=== PATIENT | male | born 1940 | race Caucasian/White ===

== ENCOUNTER 2016-08-24 11:21 | Emergency (ER) | payer MEDICARE ==
[2016-08-24] MEDS ORDERED: NS 0.9% 1000 ML* 1,000 ML IV ONE (13:05)
[2016-08-24 13:13] LABS: Hematocrit 48 % (42-52); Hemoglobin 15.9 g/dl (14.0-18.0); Mean Corpuscular HGB Conc 33 g/dl (31-36); Mean Corpuscular Hemoglobin 30 pg (27-31); Mean Corpuscular Volume 90 fL (80-94); Mean Platelet Volume 9 um3 (7.4-10.4); Red Blood Count 5.31 10^6/ul (4.0-5.4); Red Cell Distribution Width 14 % (10.5-15)
[2016-08-24 13:24] LABS: ALT 19 U/L (7-52); AST 22 U/L (13-39); Albumin 4.2 g/dL (3.2-5.2); Alkaline Phosphatase 62 U/L (34-104); Anion Gap 13 mmol/L (2-11); BUN/Creatinine Ratio 16.4 (8-20); Blood Urea Nitrogen 23 mg/dL (6-24); C Reactive Protein 14.81 mg/L (< 5.00); CO2 Carbon Dioxide 27 mmol/L (22-32); Calcium 10.4 mg/dL (8.6-10.3); Chloride 98 mmol/L (101-111); EGFR African American 63.7 (>60); EGFR Non-African American 49.5 (>60); Globulin 3.9 g/dL (2-4); Glucose 153 mg/dL (70-100); Lipase < 10 U/L (11.0-82.0); Potassium 3.7 mmol/L (3.5-5.0); Sodium 138 mmol/L (133-145); Total Protein 8.1 g/dL (6.4-8.9)
--- NOTE | 2016-08-24 14:17 | RAD ---
Indication: Cough, pneumonia. 2 views of the chest are reviewed. No mediastinal shift is noted. There is cardiomegaly noted. Lung archer demonstrate no pleural fluid, pneumonia or pneumothorax. IMPRESSION: No active cardiopulmonary disease is noted.
[2016-08-24 15:25] VITALS: BP 117/50
--- NOTE | 2016-08-24 15:33 | ED ---
Maricruz Otto Rebecca, scribed for Nicko Almendarez MD on 08/24/16 at 1252 . Abdominal Pain/Male - HPI Summary HPI Summary: Pt is a 75 y/o M who presents to ED c/o abd pain. Pain began suddenly 2 days ago and has been intermittent since onset. Reports pain has been improving while being in the ED. Pain is in the RUQ without radiation, characterized as cramping and currently not present. Sx aggravated and alleviated by nothing. Additionally c/o N/V (3x), abd feeling "tight," rhinorrhea, chills and cough secondary to sinus drainage. Denies fever, hematuria and back pain. Is not on blood thinners. Hernia repair performed 4 days ago at [facility] and he was d/c 3 days ago. Believes that he had an internal blockage, as hegets them 2-3 times per year, which has resolved due to the increase in flow to his ostomy bag. Pt reports he has emptied his ostomy bag 2 times while being in the ED. Discussed with Dr. Arevalo earlier today who advised that he be evaluated by ED and receive XR. Pt reports he does not feel as though a CT is necessary. - History of Current Complaint Chief Complaint: EDAbdPain Stated Complaint: VOMITING Time Seen by Provider: 08/24/16 12:49 Hx Obtained From: Patient Onset/Duration: Sudden Onset, Lasting Days - 2 days, Still Present Timing: Intermittent Severity Initially: Moderate Severity Currently: None Pain Intensity: 0 Pain Scale Used: 0-10 Numeric Location: Discrete At: RUQ Radiates: No Character: Cramping Aggravating Factor(s): Nothing Alleviating Factor(s): Nothing Associated Signs And Symptoms: Positive: Cough, Vomiting - 3x, Diarrhea, Other - Rhinorrhea, chills. Negative: Back Pain - Allergies/Home Medications Allergies/Adverse Reactions: Allergies Allergy/AdvReac Type Severity Reaction Status Date / Time Beef Allergy Allergy See Comment Verified 08/24/16 11:24 Sulfa Antibiotics Allergy Unknown Verified 08/24/16 11:24 Reaction Details dairy Allergy See Comment Uncoded 08/24/16 11:24 ENVIRONMENTAL Allergy Unknown Uncoded 08/24/16 11:24 Reaction Details grain Allergy See Comment Uncoded 08/24/16 11:24 tomatoes Allergy See Comment Uncoded 08/24/16 11:24 PMH/Surg Hx/FS Hx/Imm Hx Endocrine/Hematology History: Reports: Hx Diabetes - type 2 diabetic Cardiovascular History: Reports: Other Cardiovascular Problems/Disorders - a fib , cardiomyopathy Denies: Hx Hypertension GI History: Reports: Hx Gastroesophageal Reflux Disease - ON MEDICATION FOR, Hx Ileostomy - ileostomy Comment Only: Other GI Disorders - pt had a esophogeal diLITation on his upper esoph at [place] 1-2 YRS AGO History: Reports: Hx Acute Renal Failure, Hx Kidney Infection, Hx Kidney Stones - RIGHT 10/2015, Hx Renal Disease - abnormal gfr, Other Problems/ Disorders - L nephrectomy, R hydronephrosis + stent Denies: Hx Dialysis Musculoskeletal History: Reports: Hx Arthritis - NECK- OSTEOARTHRITIS Sensory History: Reports: Hx Contacts or Glasses - GLASSES, Hx Hearing Problem Denies: Hx Hearing Aid Opthamlomology History: Reports: Hx Contacts or Glasses - GLASSES - Cancer History Cancer Type, Location and Year: colon 2007,? left kidney per pt Hx Chemotherapy: Yes - [id number] WITH RADIATION AND 2009/INTROPERATIVE RADIATION - - Surgical History Surgery Procedure, Year, and Place: ileostomy,2007 tumor removal from colon AND ILEOSTOMY,. Hernia repair 1965 left inguinal. 2010 rt inguinal repair. RIGHT STENT PLACEMENT-10/2015 hx stones removed. left nephrectomy and more bowel surgery 2009 Hx Anesthesia Reactions: No Infectious Disease History: No Infectious Disease History: Denies: Traveled Outside the US in Last 30 Days - Family History Known Family History: Positive: Cardiac Disease - Social History Alcohol Use: Daily Alcohol Amount: VARIES WINE- 3 GLASSES PER DAY Substance Use Type: Reports: None Smoking Status (MU): Former Smoker Type: Cigarettes Amount Used/How Often: X ?? Review of Systems Positive: Chills. Negative: Fever Positive: Cough - secondary to sinus drianage Positive: Abdominal Pain - RUQ, currently not present, Vomiting - 3x, Nausea, Other - Abdomen feels "tight" Negative: hematuria Positive: Other - Denies back pain All Other Systems Reviewed And Are Negative: Yes Physical Exam - Summary Physical Exam Summary: The patient is well-nourished in no acute distress and in no acute pain. The skin is warm and dry and skin color reflects adequate perfusion. HEENT: The head is normocephalic and atraumatic. The pupils are equal and reactive. The conjunctivae are clear and without drainage. Nares are patent and without drainage. Mouth reveals dry mucous membranes and the throat is without erythema and exudate. The external ears are intact. The ear canals are patent and without drainage. The tympanic membranes are intact. No sinus tenderness. Neck is supple with full range of motion and non-tender. There are no carotid bruits. There is no neck vein distension. Respiratory: Chest is non-tender. Lungs are clear to auscultation and breath sounds are symmetrical and equal. Cardiovascular: Hear is regular rate and rhythm. There is no murmur or rub auscultated. There is no peripheral edema and pulses are symmetrical and equal. Abdomen: The abdomen is soft. Belly is soft around ostomy bag. There are hyperactive bowel sounds heard in all four quadrants and there is no organomegaly palpated. Ostomy bag is draining. Musculoskeletal: There is no back pain noted. Extremities are non-tender with full range of motion. There is good capillary refill. There is no peripheral edema or calf tenderness elicited. Neurological: Patient is alert and oriented to person, place and time. The patient has symmetrical motor strength in all four extremities. Cranial nerves are grossly intact. Deep tendon reflexes are symmetrical and equal in all four extremities. Psychiatric: The patient has an appropriate affect and does not exhibit any anxiety or depression. Triage Information Reviewed: Yes Vital Signs On Initial Exam: Initial Vitals Temp Pulse Resp BP Pulse Ox 98.4 F 90 16 98/59 99 08/24/16 11:24 08/24/16 11:24 08/24/16 11:24 08/24/16 11:24 08/24/16 11:24 Vital Signs Reviewed: Yes Diagnostics - Vital Signs Vital Signs Temp Pulse Resp BP Pulse Ox 08/24/16 12:21 98 F 102 20 111/70 100 08/24/16 11:24 98.4 F 90 16 98/59 99 - Laboratory Lab Results: Lab Results 08/24/16 08/24/16 08/24/16 Range/Units 12:55 12:55 12:55 WBC 11.0 H (3.5-10.8) 10^3/ul RBC 5.31 (4.0-5.4) 10^6/ul Hgb 15.9 (14.0-18.0) g/dl Hct 48 (42-52) % MCV 90 (80-94) fL MCH 30 (27-31) pg MCHC 33 (31-36) g/dl RDW 14 (10.5-15) % Plt Count 242 (150-450) 10^3/ul MPV 9 (7.4-10.4) um3 Neut % (Auto) 76.7 (38-83) % Lymph % (Auto) 14.7 L (25-47) % Aiken % (Auto) 7.6 (1-9) % Eos % (Auto) 0.5 (0-6) % Baso % (Auto) 0.5 (0-2) % Absolute Neuts (auto) 8.5 H (1.5-7.7) 10^3/ul Absolute Lymphs (auto) 1.6 (1.0-4.8) 10^3/ul Absolute Monos (auto) 0.8 (0-0.8) 10^3/ul Absolute Eos (auto) 0.1 (0-0.6) 10^3/ul Absolute Basos (auto) 0.1 (0-0.2) 10^3/ul Absolute Nucleated RBC 0.01 10^3/ul Nucleated RBC % 0.1 INR (Anticoag Therapy) 0.98 (0.89-1.11) Sodium 138 (133-145) mmol/L Potassium 3.7 (3.5-5.0) mmol/L Chloride 98 L (101-111) mmol/L Carbon Dioxide 27 (22-32) mmol/L Anion Gap 13 H (2-11) mmol/L BUN 23 (6-24) mg/dL Creatinine 1.40 H (0.67-1.17) mg/dL Est GFR ( Amer) 63.7 (>60) Est GFR (Non-Af Amer) 49.5 (>60) BUN/Creatinine Ratio 16.4 (8-20) Glucose 153 H (70-100) mg/dL Lactic Acid (0.5-2.0) mmol/L Calcium 10.4 H (8.6-10.3) mg/dL Total Bilirubin 1.30 H (0.2-1.0) mg/dL AST 22 (13-39) U/L ALT 19 (7-52) U/L Alkaline Phosphatase 62 (34-104) U/L C-Reactive Protein 14.81 H (< 5.00) mg/L Total Protein 8.1 (6.4-8.9) g/dL Albumin 4.2 (3.2-5.2) g/dL Globulin 3.9 (2-4) g/dL Albumin/Globulin Ratio 1.1 (1-3) Lipase < 10 L (11.0-82.0) U/L 08/24/16 Range/Units 12:55 WBC (3.5-10.8) 10^3/ul RBC (4.0-5.4) 10^6/ul Hgb (14.0-18.0) g/dl Hct (42-52) % MCV (80-94) fL MCH (27-31) pg MCHC (31-36) g/dl RDW (10.5-15) % Plt Count (150-450) 10^3/ul MPV (7.4-10.4) um3 Neut % (Auto) (38-83) % Lymph % (Auto) (25-47) % Aiken % (Auto) (1-9) % Eos % (Auto) (0-6) % Baso % (Auto) (0-2) % Absolute Neuts (auto) (1.5-7.7) 10^3/ul Absolute Lymphs (auto) (1.0-4.8) 10^3/ul Absolute Monos (auto) (0-0.8) 10^3/ul Absolute Eos (auto) (0-0.6) 10^3/ul Absolute Basos (auto) (0-0.2) 10^3/ul Absolute Nucleated RBC 10^3/ul Nucleated RBC % INR (Anticoag Therapy) (0.89-1.11) Sodium (133-145) mmol/L Potassium (3.5-5.0) mmol/L Chloride (101-111) mmol/L Carbon Dioxide (22-32) mmol/L Anion Gap (2-11) mmol/L BUN (6-24) mg/dL Creatinine (0.67-1.17) mg/dL Est GFR ( Amer) (>60) Est GFR (Non-Af Amer) (>60) BUN/Creatinine Ratio (8-20) Glucose (70-100) mg/dL Lactic Acid 2.8 H* (0.5-2.0) mmol/L Calcium (8.6-10.3) mg/dL Total Bilirubin (0.2-1.0) mg/dL AST (13-39) U/L ALT (7-52) U/L Alkaline Phosphatase (34-104) U/L C-Reactive Protein (< 5.00) mg/L Total Protein (6.4-8.9) g/dL Albumin (3.2-5.2) g/dL Globulin (2-4) g/dL Albumin/Globulin Ratio (1-3) Lipase (11.0-82.0) U/L Result Diagrams: 08/24/16 12:55 08/24/16 12:55 Lab Statement: Any lab studies that have been ordered have been reviewed, and results considered in the medical decision making process. - Radiology CXR Xray Interpretation: No Acute Changes - NO ACTIVE CARDIOPULMONARY DISEASE NOTED. Radiology Interpretation Completed By: Radiologist Abdominal Pain Fem Course/Dx - Course Assessment/Plan: Pt is a 75 y/o M who presents to ED c/o decreased colostomy flow and abd pain for 2 days s/p hernia repair surgery. Pt vomited at home, GUIDE TRAVEL. Pt is feeling significantly better after fluids and flow to his colostomy bag has increased. CXR reveals no acute cardiopulmonary disease. He will be sent home with Abx and a follow up with Dr. Arevalo. - Diagnoses Differential Diagnosis/HQI/PQRI: Bowel Obstruction, Ischemic Bowel, Pancreatitis , Other - dehydration, partial sbo, Provider Diagnoses: Dehydration, Bronchitis, Abdominal pain Discharge - Discharge Plan Condition: Stable Disposition: HOME Prescriptions: Azithromycin TAB* [Zithromax TAB (Z-HANNAH) 250 mg #6 tabs] 2 tab PO .TODAY, THEN 1 DAILY #6 hannah Patient Education Materials: Acute Bronchitis (ED), Dehydration (ED) Referrals: Scott Arevalo MD [Medical Doctor] - 2 Days (Follow up with Minh Arevalo within the next 2 days. ) The documentation as recorded by the Maricruz de santiago Rebecca accurately reflects the service I personally performed and the decisions made by , Nikco Almendarez MD.
== END 2016-08-24 15:20 | disposition home or self-care (01) ==
LOC: ED 11:21
DX: E86.0 Dehydration (principal); J40 Bronchitis, not specified as acute or chronic; R10.11 Right upper quadrant pain; R05 Cough; R11.2 Nausea with vomiting, unspecified
CPT/HCPCS: 36415; 71020; 80053; 83605; 83690; 85025; 85610; 86140; 96360; 99283

== ENCOUNTER 2017-08-27 20:13 | Inpatient (IN) | payer MEDICARE ==
[2017-08-27] MEDS ORDERED: NS 0.9% 1000 ML* 2,000 ML IV ONE (20:46)
[2017-08-27] MEDS ORDERED: Diltiazem DRIP* 100 MG/100 ML ADDV.BAG IVPB ONE (20:51)
[2017-08-27 21:10] LABS: ABS Basophils 0.1 10^3/ul (0-0.2); ABS Eosinophils 0.2 10^3/ul (0-0.6); ABS Lymphocytes 1.5 10^3/ul (1.0-4.8); ABS Monocytes 0.7 10^3/ul (0-0.8); ABS Neutrophils 8.1 10^3/ul (1.5-7.7); ABS Nucleated RBC 0 10^3/ul; Eosinophil % 2.3 % (0-6); Hematocrit 41 % (42-52); Hemoglobin 13.6 g/dl (14.0-18.0); Lymphocyte % 14.4 % (25-47); Mean Corpuscular HGB Conc 33 g/dl (31-36); Mean Corpuscular Hemoglobin 30 pg (27-31); Mean Corpuscular Volume 91 fL (80-94); Mean Platelet Volume 8 um3 (7.4-10.4); Nucleated Red Blood Cells % 0; Platelet Count 208 10^3/ul (150-450); Red Blood Count 4.51 10^6/ul (4.0-5.4); Red Cell Distribution Width 14 % (10.5-15); White Blood Count 10.6 10^3/ul (3.5-10.8)
--- NOTE | 2017-08-27 21:24 | RAD ---
INDICATION: Chest pain. COMPARISON: Comparison is made with a prior study from August 24, 2016. TECHNIQUE: A portable view of the chest was obtained. FINDINGS: The heart appears mildly enlarged. The lungs are underinflated and clear. IMPRESSION: NO EVIDENCE FOR ACUTE DISEASE.
[2017-08-27] MEDS ORDERED: Magnesium Sulfate 2 GM IV* 2 GM/50 ML BAG IVPB ONE (21:31)
[2017-08-27 21:38] LABS: INR 1.06 (0.77-1.02)
[2017-08-27] MEDS ORDERED: Diltiazem IV VIAL* 125 MG in NS 0.9% 100 ML* 100 ML IV SCH (22:00)
[2017-08-27] MEDS ORDERED: Iodixanol* (CONTRAST) 320 MG/ML 100 ML SDV IV ONE (22:00)
[2017-08-27] MEDS ORDERED: NS 0.9% 100 ML* 100 ML ONE (22:09)
[2017-08-27] MEDS ORDERED: Heparin DRIP 25,000 UNITS(*) 25,000 UNITS/500 ML BAG IVPB SCH (23:45)
[2017-08-27] MEDS ORDERED: Heparin VIAL(*) 5000 UNITS/ML VIAL (FIVE THOUSAND) IV SCH (23:45)
--- NOTE | 2017-08-27 23:46 | ED ---
Benjamin Otto Thomas, scribed for Delonte Reis MD on 08/27/17 at 2102 . HPI Chest Pain - HPI Summary HPI Summary: The patient is a 76 year old male presenting to the emergency department complaining of chest pressure that began suddenly tonight at 19:00. He rates the pain as 7/10. Patient also reports shortness of breath and slight palpitations. Patient was given ASA by paramedics. Patient denies any pain radiation, numbness, nausea, or diaphoresis. Patient was previously diagnosed with cardiomyopathy in 1997. Patient is in remission for colon cancer. He is on a beta jonathan and ASA 81. Past medical history includes DM, an unspecified arrhythmia, and an unspecified cardiomyopathy. - History of Current Complaint Chief Complaint: EDChestPainROMI Time Seen by Provider: 08/27/17 20:30 Hx Obtained From: Patient Onset/Duration: Started Hours Ago - onset today at 19:00, Still Present Timing: Constant Current Severity: Moderate Pain Intensity: 7 Pain Scale Used: 0-10 Numeric Chest Pain Radiates: No Character: Pressure/Squeezing Aggravating Factor(s): Other: - Exertion Alleviating Factor(s): Nothing Associated Signs and Symptoms: Positive: Chest Pain, Shortness of Breath. Negative: Other: - numbness, nausea, diaphoresis - Additional Pertinent History Primary Care Physician: [id number] - Allergy/Home Medications Allergies/Adverse Reactions: Allergies Allergy/AdvReac Type Severity Reaction Status Date / Time MS Beef Allergy Allergy See Comment Verified 08/24/16 11:24 [Beef Allergy] MS Sulfa Antibiotics Allergy Unknown Verified 08/24/16 11:24 [Sulfa Antibiotics] Reaction Details dairy Allergy See Comment Uncoded 08/24/16 11:24 ENVIRONMENTAL Allergy Unknown Uncoded 08/24/16 11:24 Reaction Details grain Allergy See Comment Uncoded 08/24/16 11:24 tomatoes Allergy See Comment Uncoded 08/24/16 11:24 PMH/Surg Hx/FS Hx/Imm Hx Endocrine/Hematology History: Reports: Hx Diabetes - type 2 diabetic Cardiovascular History: Reports: Other Cardiovascular Problems/Disorders - a fib , cardiomyopathy Denies: Hx Hypertension GI History: Reports: Hx Gastroesophageal Reflux Disease - ON MEDICATION FOR, Hx Ileostomy - ileostomy Comment Only: Other GI Disorders - pt had a esophogeal diLITation on his upper esoph at [facility] 1-2 YRS AGO History: Reports: Hx Acute Renal Failure, Hx Kidney Infection, Hx Kidney Stones - RIGHT 10/2015, Hx Renal Disease - abnormal gfr, Other Problems/ Disorders - L nephrectomy, R hydronephrosis + stent Denies: Hx Dialysis Musculoskeletal History: Reports: Hx Arthritis - NECK- OSTEOARTHRITIS Sensory History: Reports: Hx Contacts or Glasses - GLASSES, Hx Hearing Problem Denies: Hx Hearing Aid Opthamlomology History: Reports: Hx Contacts or Glasses - GLASSES - Cancer History Cancer Type, Location and Year: colon 2007,? left kidney per pt Hx Chemotherapy: Yes - [id number] WITH RADIATION AND 2009/INTROPERATIVE RADIATION - - Surgical History Surgery Procedure, Year, and Place: ileostomy,2006 tumor removal from colon AND ILEOSTOMY,. Hernia repair 1965 left inguinal. 2009 rt inguinal repair. RIGHT STENT PLACEMENT-10/2015 hx stones removed. left nephrectomy and more bowel surgery 2009 Hx Anesthesia Reactions: No Infectious Disease History: No Infectious Disease History: Denies: Traveled Outside the [place] in Last 30 Days - Family History Known Family History: Positive: Cardiac Disease - Social History Alcohol Use: Daily Alcohol Amount: VARIES WINE- 3 GLASSES PER DAY Substance Use Type: Reports: None Smoking Status (MU): Former Smoker Type: Cigarettes Amount Used/How Often: X ?? Review of Systems Negative: Fever, Skin Diaphoresis Positive: Chest Pain Positive: Shortness Of Breath Negative: Nausea Negative: Numbness All Other Systems Reviewed And Are Negative: Yes Physical Exam - Summary Physical Exam Summary: General: mildly ill-appearing, no pain distress Skin: warm, color reflects adequate perfusion, dry Head: normal Eyes: EOMI, KATHRYN ENT: normal Neck: supple, nontender Respiratory: CTA, breath sounds present Cardiovascular: Tachycardia, irregularly irregular rhythm Abdomen: Ssoft, nontender. There is an ileostomy bag. Bowel: present Musculoskeletal: normal, strength/ROM intact. There is no pedal edema or calf tenderness. Neurological: normal, sensory/motor intact, A&O x3 Psychological: affect/mood appropriate Triage Information Reviewed: Yes Vital Signs On Initial Exam: Initial Vitals Temp Pulse Resp BP Pulse Ox 96.7 F 108 20 107/78 92 08/27/17 20:26 08/27/17 20:26 08/27/17 20:26 08/27/17 20:26 01/31/18 20:26 Vital Signs Reviewed: Yes Diagnostics - Vital Signs Vital Signs Temp Pulse Resp BP Pulse Ox 08/27/17 20:26 96.7 F 108 20 107/78 92 - Laboratory Lab Results: Lab Results 08/27/17 08/27/17 08/27/17 Range/Units 20:55 20:55 20:55 WBC 10.6 (3.5-10.8) 10^3/ul RBC 4.51 (4.0-5.4) 10^6/ul Hgb 13.6 L (14.0-18.0) g/dl Hct 41 L (42-52) % MCV 91 (80-94) fL MCH 30 (27-31) pg MCHC 33 (31-36) g/dl RDW 14 (10.5-15) % Plt Count 208 (150-450) 10^3/ul MPV 8 (7.4-10.4) um3 Neut % (Auto) 76.1 (38-83) % Lymph % (Auto) 14.4 L (25-47) % Cuming % (Auto) 6.6 (1-9) % Eos % (Auto) 2.3 (0-6) % Baso % (Auto) 0.6 (0-2) % Absolute Neuts (auto) 8.1 H (1.5-7.7) 10^3/ul Absolute Lymphs (auto) 1.5 (1.0-4.8) 10^3/ul Absolute Monos (auto) 0.7 (0-0.8) 10^3/ul Absolute Eos (auto) 0.2 (0-0.6) 10^3/ul Absolute Basos (auto) 0.1 (0-0.2) 10^3/ul Absolute Nucleated RBC 0 10^3/ul Nucleated RBC % 0 INR (Anticoag Therapy) (0.77-1.02) APTT (26.0-36.3) seconds D-Dimer, Quantitative (Less Than 230) ng/mL Sodium 136 (133-145) mmol/L Potassium 4.5 (3.5-5.0) mmol/L Chloride 105 (101-111) mmol/L Carbon Dioxide 23 (22-32) mmol/L Anion Gap 8 (2-11) mmol/L BUN 24 (6-24) mg/dL Creatinine 1.41 H (0.67-1.17) mg/dL Est GFR ( Amer) 63.0 (>60) Est GFR (Non-Af Amer) 49.0 (>60) BUN/Creatinine Ratio 17.0 (8-20) Glucose 245 H (70-100) mg/dL Lactic Acid (0.5-2.0) mmol/L Calcium 8.8 (8.6-10.3) mg/dL Magnesium 1.8 L (1.9-2.7) mg/dL Total Bilirubin 0.70 (0.2-1.0) mg/dL AST 32 (13-39) U/L ALT 32 (7-52) U/L Alkaline Phosphatase 62 (34-104) U/L Total Creatine Kinase 30 (10-223) U/L CK-MB (CK-2) 1.7 (0.6-6.3) ng/mL Troponin I 0.04 H* (<0.04) ng/mL C-Reactive Protein 9.79 H (< 5.00) mg/L B-Natriuretic Peptide 248 H ( - 100) pg/mL Total Protein 7.4 (6.4-8.9) g/dL Albumin 3.6 (3.2-5.2) g/dL Globulin 3.8 (2-4) g/dL Albumin/Globulin Ratio 0.9 L (1-3) Lipase 19 (11.0-82.0) U/L TSH 5.60 (0.34-5.60) mcIU/mL 08/27/17 08/27/17 Range/Units 20:55 20:55 WBC (3.5-10.8) 10^3/ul RBC (4.0-5.4) 10^6/ul Hgb (14.0-18.0) g/dl Hct (42-52) % MCV (80-94) fL MCH (27-31) pg MCHC (31-36) g/dl RDW (10.5-15) % Plt Count (150-450) 10^3/ul MPV (7.4-10.4) um3 Neut % (Auto) (38-83) % Lymph % (Auto) (25-47) % Cuming % (Auto) (1-9) % Eos % (Auto) (0-6) % Baso % (Auto) (0-2) % Absolute Neuts (auto) (1.5-7.7) 10^3/ul Absolute Lymphs (auto) (1.0-4.8) 10^3/ul Absolute Monos (auto) (0-0.8) 10^3/ul Absolute Eos (auto) (0-0.6) 10^3/ul Absolute Basos (auto) (0-0.2) 10^3/ul Absolute Nucleated RBC 10^3/ul Nucleated RBC % INR (Anticoag Therapy) 1.06 H (0.77-1.02) APTT 26.8 (26.0-36.3) seconds D-Dimer, Quantitative > 1050 H (Less Than 230) ng/mL Sodium (133-145) mmol/L Potassium (3.5-5.0) mmol/L Chloride (101-111) mmol/L Carbon Dioxide (22-32) mmol/L Anion Gap (2-11) mmol/L BUN (6-24) mg/dL Creatinine (0.67-1.17) mg/dL Est GFR ( Amer) (>60) Est GFR (Non-Af Amer) (>60) BUN/Creatinine Ratio (8-20) Glucose (70-100) mg/dL Lactic Acid 2.4 H* (0.5-2.0) mmol/L Calcium (8.6-10.3) mg/dL Magnesium (1.9-2.7) mg/dL Total Bilirubin (0.2-1.0) mg/dL AST (13-39) U/L ALT (7-52) U/L Alkaline Phosphatase (34-104) U/L Total Creatine Kinase (10-223) U/L CK-MB (CK-2) (0.6-6.3) ng/mL Troponin I (<0.04) ng/mL C-Reactive Protein (< 5.00) mg/L B-Natriuretic Peptide ( - 100) pg/mL Total Protein (6.4-8.9) g/dL Albumin (3.2-5.2) g/dL Globulin (2-4) g/dL Albumin/Globulin Ratio (1-3) Lipase (11.0-82.0) U/L TSH (0.34-5.60) mcIU/mL Result Diagrams: 08/27/17 20:55 08/27/17 20:55 Lab Statement: Any lab studies that have been ordered have been reviewed, and results considered in the medical decision making process. - Radiology CXR Xray Interpretation: No Acute Changes - NO EVIDENCE FOR ACUTE DISEASE. Dr. Reis has reviewed this report. Radiology Interpretation Completed By: Radiologist - CT CTA Chest CT Interpretation: Positive (See Comments) - Positive for multiple bilateral pulmonary emboli involving vessels to all lobes. Although there are no saddle emboli, the thromboembolus involves the distal portions of both the right and left pulmonary arteries. There is some atelectasis in the left costophrenic sulcus but otherwise no pulmonary infiltrates. The right heart is enlarged and there is reflux of contrast into the inferior vena cava and hepatic veins probably indicating right heart strain. Dr. Reis has reviewed this report. CT Interpretation Completed By: Radiologist - EKG 20:23 Cardiac Rate: Tachycardia EKG Rhythm: Atrial Fibrillation - at 121 BPM EKG Interpretation: Rapid A-Fib. Normal ST. Chest Pain Course/Dx - Course Course Of Treatment: CHEST PAIN FREE IN ED. PATIENT HAD ASA WITH EMS. ADMIT HOSPITALIST WHO IS STARTING HEPARIN DRIP FOR B/L PE. - Diagnoses Provider Diagnoses: Chest pain, Afib, Pulmonary embolism - Provider Notifications Discussed Care Of Patient With: Nely Chambers Time Discussed With Above Provider: 21:33 Instructed by Provider To: Admit As Inpatient - Critical Care Time Critical Care Time: 30-74 min Discharge - Discharge Plan Condition: Fair Disposition: ADMITTED TO [facility] Referrals: Alexei Peña MD [Primary Care Provider] - The documentation as recorded by the Benjamin de santiago Thomas accurately reflects the service I personally performed and the decisions made by me, Delonte Reis MD.
[2017-08-28] MEDS ORDERED: Senna TAB PO PRN (00:26)
[2017-08-28] MEDS ORDERED: Acetaminophen TAB* 325 MG PO PRN (00:26)
[2017-08-28] MEDS ORDERED: Docusate CAP* 100 MG PO PRN (00:26)
[2017-08-28] MEDS ORDERED: Ondansetron INJ* 2 MG/ML VIAL IV PRN (00:26)
[2017-08-28] MEDS ORDERED: Al Hydrox/Mg Hydrox/Simet LIQ* 30 ML UDC PO PRN (00:26)
[2017-08-28] MEDS ORDERED: Dextrose 50% Syringe 50 ML* 25 GM/50 ML SYRINGE IV PUSH PRN (00:29)
[2017-08-28] MEDS ORDERED: NS 0.9% 1000 ML* 1,000 ML IV SCH ×2 (02:45→12:15)
[2017-08-28] MEDS ORDERED: Gabapentin CAP(*) 300 MG ONE (03:06)
[2017-08-28] MEDS: Gabapentin CAP(*) 300 MG PO SCH ×2 (03:09→23:09)
--- NOTE | 2017-08-28 04:36 | HP ---
CC: Alexei Peña MD* HISTORY AND PHYSICAL: DATE OF ADMISSION: 08/28/17 TIME OF EVALUATION: 0000. PRIMARY CARE PHYSICIAN: Alexei Peña MD CHIEF COMPLAINT: Shortness of breath, palpitations, and chest pain. HISTORY OF PRESENT ILLNESS: This is a 76-year-old male with past medical history of atrial fibrillation, not on anticoagulation, who presents to the emergency room with acute onset of shortness of breath, chest pain, and palpitations. The patient states he was in his normal state of health, when he was at the library, reading when he developed substernal chest pain. He got up to move to a more comfortable place and he had significantly worsening chest heaviness, he was short of breath, and he put his head down and EMS was called. When they arrived, he was noted to be hypoxic, in rapid atrial fibrillation, and hypertensive. He states a week ago, he had an episode of palpitations and shortness of breath. He went to go to see his nurse practitioner and she noted an elevated heart rate. He had EKG and blood work and they started him on a beta-jonathan and gave magnesium and he seemed to be better. He denies having history of a recent stress test. He has lost about 8 pounds in the last month. No fever. No recent URI illness. He was sick back in June. No nausea, vomiting, or diarrhea. No change in his output from his colostomy. He denies any recent travel. He states his chest pain is resolved; however, when he moved into the CAT scanner, he had significant discomfort and shortness of breath for just minimal movement. Otherwise, remaining review of systems is negative. In the emergency room, the patient had labs, imaging. He was given a liter of normal saline, 2 g of mag, and started on a diltiazem drip and a heparin drip as well. PAST MEDICAL HISTORY: 1. Diabetes. 2. History of neuropathy secondary to chemotherapy. 3. Atrial fibrillation, on anticoagulation. 4. Remote history of cardiomyopathy, thought to be secondary to viral back in 1997. 5. History of GERD, status post esophageal dilatation. 6. History of acute kidney injury. 7. History of nephrolithiasis. 8. History of left nephrectomy. 9. History of right hydro, history of stent placement. 10. History of colon cancer, status post resection and ileostomy, now considered in remission. 11. History of hernia repair. MEDICATIONS: The patient is not entirely sure his list, but this is what he provided to me: 1. Gabapentin 300 mg in the morning. 2. Gabapentin 900 mg in the evening. 3. Fexofenadine. 4. Lipitor 20 mg daily. 5. Aspirin 81 mg daily. 6. Omeprazole 20 mg daily. 7. Vitamin B12 daily. 8. Metoprolol daily. 9. Magnesium oxide. 10. An oral diabetes medication. ALLERGIES: BEES ALLERGY, SULFA, DAIRY, ENVIRONMENTAL, GREEN TOMATOES. FAMILY HISTORY: Mother from brain aneurysm in her 70s. Father at age 54 from an NE. SOCIAL HISTORY: The patient lives at home with his . 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 He lives with , Monique who is his healthcare proxy. He quit smoking in 1979. At that time, he smoked a pack per day for 30 years. He has a 1 to 2 glasses of wine in the evening. Code status is full code. REVIEW OF SYSTEMS: A 14-point review of systems negative and as mentioned in the HPI. PHYSICAL EXAMINATION GENERAL: No acute distress, resting comfortably with his at the bedside. VITAL SIGNS: Temp 96.7, pulse rate 90, respiratory rate 25, oxygen saturation 99% on 2 L, blood pressure 111/63. HEENT: Head: Normocephalic. Pupils equal and reactive, anicteric. Oropharynx : Mucous membranes are moist. NECK: Supple. No lymphadenopathy. RESPIRATORY: Diminished breath sounds. No wheezes, rhonchi, or rales. CARDIAC: Irregularly irregular rate and rhythm. Soft systolic murmur heard throughout. ABDOMEN: Soft, nontender, nondistended. EXTREMITIES: No clubbing, cyanosis, or edema. +1 DPs. NEUROLOGIC: Alert and oriented x3. No focal neurologic deficits. LABORATORY DATA: White count 10.6, hemoglobin 13.6, hematocrit 41, platelets 208. INR is 1.06. D-dimer greater than 1050. Sodium 136, potassium 4.5, chloride 105, bicarb 23, BUN 24, creatinine 1.41, glucose 245, lactic acid 2.4, mag 1.8. Troponin 0.04, repeat 0.09. CRP 9.79. BNP 248. RADIOGRAPHIC DATA: Chest x-ray shows no evidence for acute disease. EKG shows rapid atrial fibrillation. Chest CTA, positive multiple bilateral pulmonary emboli involving vessels to all lobes, although there is no saddle emboli. The thromboembolus involves distal portions of both the right and left pulmonary arteries. There is some atelectasis in the costophrenic sulcus, but otherwise no pulmonary infiltrates. ASSESSMENT AND PLAN: This is a 76-year-old male with a past medical history of atrial fibrillation, on anticoagulation; remote history of colon cancer, now in remission, who presents to the emergency room with acute onset of chest pain, shortness of breath, palpitations, found to be in rapid atrial fibrillation with bilateral extensive pulmonary emboli. 1. Rapid atrial fibrillation and pulmonary emboli. I suspect the pulmonary emboli triggered him to go into rapid atrial fibrillation. Etiology behind is pulmonary emboli is unclear. He has a history of malignancy, but he is in remission. He denies being sedentary. Plan: Continue him on the heparin drip. We will place him in the ICU. Continue the diltiazem drip for rate control, titrate accordingly. We will obtain an echocardiogram and an ultrasound of the lower extremities in the morning. 2. Chronic medical problems: Diabetes: We will check a hemoglobin A1c. We will place him on a lispro sliding scale. Hold his oral agents. 3. Neuropathy. Continue his gabapentin. 4. Hyperlipidemia. Hold his Lipitor, does not have formulary. 5. Atrial fibrillation. The patient on metoprolol. We will hold this while he is on the diltiazem drip, now will be on anticoagulation. Continue him on the baby aspirin. 6. FEN. Place the patient on a heart healthy diet, carbohydrate diet. 7. DVT prophylaxis. The patient scores moderate risk. He is on heparin drip. 8. Code status. Full code. PATIENT TIME: Greater than 60 minutes spent doing the history and physical, more than half the time spent in direct patient contact. [id number]/CPS #: [id number] [facility] MEDICAL CENTERDarline
[2017-08-28 05:54] LABS: ABS Basophils 0.1 10^3/ul (0-0.2); ABS Eosinophils 0.1 10^3/ul (0-0.6); ABS Lymphocytes 1.4 10^3/ul (1.0-4.8); ABS Monocytes 0.7 10^3/ul (0-0.8); ABS Neutrophils 6.7 10^3/ul (1.5-7.7); ABS Nucleated RBC 0 10^3/ul; Eosinophil % 0.8 % (0-6); Hematocrit 38 % (42-52); Hemoglobin 12.5 g/dl (14.0-18.0); Lymphocyte % 15.8 % (25-47); Mean Corpuscular HGB Conc 33 g/dl (31-36); Mean Corpuscular Hemoglobin 30 pg (27-31); Mean Corpuscular Volume 91 fL (80-94); Mean Platelet Volume 8 um3 (7.4-10.4); Nucleated Red Blood Cells % 0.1; Platelet Count 188 10^3/ul (150-450); Red Blood Count 4.15 10^6/ul (4.0-5.4); Red Cell Distribution Width 14 % (10.5-15); White Blood Count 8.9 10^3/ul (3.5-10.8)
[2017-08-28] MEDS ORDERED: Omeprazole CAP* 20 MG PO SCH (06:00)
[2017-08-28] MEDS ORDERED: NS 0.9% 500 ML* 500 ML IV ONE (06:04)
[2017-08-28 06:16] LABS: EGFR Non-African American 68.9 (>60)
[2017-08-28] MEDS ORDERED: Diltiazem TAB* 30 MG PO SCH (07:00)
[2017-08-28] MEDS ORDERED: NS 0.9% 1000 ML* 1,000 ML IV ONE (07:13)
--- NOTE | 2017-08-28 07:49 | RAD ---
HISTORY: Chest pain COMPARISONS: February 19, 2011 TECHNIQUE: Multiple contiguous axial CT scans of the chest were obtained after the administration of nonionic intravenous contrast, timed to the pulmonary arterial phase of contrast enhancement.. Coronal and sagittal multiplanar reformations are also submitted for review. FINDINGS: NECK AND THYROID: The lower neck and thyroid are unremarkable. CHEST WALL: There is no lower cervical, axillary, or supraclavicular lymphadenopathy by size criteria. HEART AND PERICARDIUM: There is right atrial enlargement. AORTA AND PULMONARY VASCULATURE: There are large filling defects within the right and left pulmonary arterial branches extending to the lobar and segmental branches bilaterally. MEDIASTINUM: There is no mediastinal lymphadenopathy by size criteria. MIKY: There is no hilar lymphadenopathy by size criteria. AIRWAY AND ESOPHAGUS: The airway is unremarkable, without endobronchial filling defect. The esophagus is grossly normal. LUNG PARENCHYMA: There is minimal dependent atelectasis bilaterally. PLEURA: No pleural abnormalities are noted. UPPER ABDOMEN: The upper abdomen is unremarkable. BONES AND SOFT TISSUES: Mild degenerative changes are noted OTHER: None. IMPRESSION: 1. LARGE BILATERAL PULMONARY EMBOLI EXTENDING FROM THE RIGHT AND LEFT PULMONARY ARTERIES TO THE LOBAR AND SEGMENTAL BRANCHES BILATERALLY. 2. THERE IS RIGHT ATRIAL ENLARGEMENT WHICH MAY REFLECT RIGHT HEART STRAIN. Preliminary findings were reported at approximately 11:26 PM on August 27, [address] Tony Vásquez
[2017-08-28] MEDS ORDERED: Gabapentin CAP(*) 300 MG PO SCH ×2 (09:00→21:00)
[2017-08-28] MEDS ORDERED: Aspirin EC Low Dose* 81 MG TAB.EC PO SCH (09:00)
--- NOTE | 2017-08-28 09:48 | ECHO ---
Patient: HEATHER DUMONT [facility] Rec#: [id number] : 1940 Date: 08/28/2017 Age: 76y Height: 182.88 cm / 72.0 in Weight: 81.65 kg / 180.0 lbs Sex: M BSA: 2.04 Room#: [facility] Admit Date#: 08/28/2017 Type: Inpatient Referring: Nely Chambers Reading: Robert Horner MD Grommet Machine Operator: Valerie Robert RDCS CC: Alexei Peña MD Transthoracic Echocardiogram Indication: Pulmonary Embolism BP: 73/46 HR: 75 Rhythm: A-Fib Findings History: A-fib, DM, colon cancer with chemotherapy, s/p colostomy, murmur, acute kidney injury, left nephrectomy. Technical Comments: The study quality is fair. Completed at 0830. Left Ventricle: The left ventricular chamber size is normal. Moderate concentric left ventricular hypertrophy is observed. There are multiple regional wall motion abnormalities. There is apical, distal anterior wall, and distal inferior wall akinesis with thinning as well as moderate to severe mid anterior wall hypokinesis. There is moderate to severely decreased left ventricular systolic function. The estimated ejection fraction is 25-30%. Visually estimated LVEF is 30%. There is septal flattening of the interventricular septum consistent with right ventricular volume or pressure overload. The assessment of diastolic function is non-diagnostic. Left Atrium: The left atrium is severely dilated. Right Ventricle: Moderator Band present. The right ventricle is moderately dilated. The right ventricle wall thickness is mildly increased. The right ventricular global systolic function is mildly to moderately reduced. Right Atrium: The right atrial cavity size is severely dilated. Aortic Valve: The aortic valve is trileaflet. The aortic valve leaflets are mildly thickened. There is trace to mild aortic regurgitation. There is no evidence of aortic stenosis. Mitral Valve: The mitral valve leaflets are mildly thickened. There is mild to moderate mitral regurgitation. There is no evidence of mitral stenosis. Tricuspid Valve: The tricuspid valve leaflets are normal. There is moderate to severe tricuspid regurgitation. The right ventricular systolic pressure is estimated at 46 mmHg. There is evidence of moderate pulmonary hypertension. There is no tricuspid stenosis. Pulmonic Valve: The pulmonic valve appears normal. There is mild pulmonic regurgitation. There is no pulmonic stenosis. Pericardium: There is no significant pericardial effusion. A pericardial fat pad is visualized. Aorta: There is borderline dilatation of the ascending aorta. There is no dilatation of the aortic arch. The aortic root is normal in size. Pulmonary Artery: The main pulmonary artery is not well visualized. Venous: The inferior vena cava appears normal in size. There is an approximate 50% respiratory change in the inferior vena cava dimension. Conclusions Moderate concentric left ventricular hypertrophy is observed. There is moderate to severely decreased left ventricular systolic function. Visually estimated LVEF is 30%. There is trace to mild aortic regurgitation. There is mild to moderate mitral regurgitation. The left atrium is severely dilated. There is moderate to severe tricuspid regurgitation. There is evidence of moderate pulmonary hypertension. There is mild pulmonic regurgitation. Compared to report of 07/17/16 the LV systolic dysfunction is new (prior LVEF reported as 50-55%), the degree of tricupid regurgitation has increased (was mild to moderate). Measurements Name Value Normal Range RVIDd (AP) 2D 3.3 cm (0.9 - 2.6) RVDdMajor (2D) 5 cm (2.2 - 4.4) RVAW (2D) 0.7 cm (0.2 - 0.5) RAd ISD 4CH 7.4 cm (3.4 - 4.9) RA (A4C)W 4.8 cm (2.9 - 4.6) IVSd (2D) 1.5 cm (0.6 - 1) LVPWd (2D) 1.6 cm (0.6 - 1) LVIDd (2D) 3.9 cm (3.6 - 5.4) LVIDs (2D) 2.7 cm - LV FS (2D) 29 % (25 - 45) Aortic Annulus 2 cm (1.4 - 2.6) Ao root diameter (2D) 3.5 cm (2.1 - 3.5) Ascending Ao 3.4 cm (2.1 - 3.4) Aortic arch 2.6 cm (1.8 - 3.4) LA dimension (AP) 2D 5.1 cm (2.3 - 3.8) LAd ISD 4CH 7 cm (2.9 - 5.3) LA ISD 4CH W 4.9 cm (2.5 - 4.5) Name Value Normal Range LA ESV SP 4CH (A/L) 104 ml - LA ESV SP 2CH (A/L) 172 ml - LA ESV BP (A/L) 144 ml - LA ESV BP (A/L) index 70 ml/m2 - LA ESV SP 4CH (MOD) 98 ml - LA ESV SP 2CH (MOD) 163 ml - Name Value Normal Range MV E-wave Vmax 0.59 m/sec - MV deceleration time 179.9 msec - MV E:A ratio 300.9 ratio - LV septal e' Vmax 0.13 m/sec - LV lateral e' Vmax 0.1 m/sec - LV E:e' septal ratio 4.54 ratio - LV E:e' lateral ratio 5.9 ratio - Name Value Normal Range AV Vmax 0.89 m/sec - AV VTI 15.82 cm - AV peak gradient 3.18 mmHg - AV mean gradient 1.66 mmHg - LVOT Vmax 0.51 m/sec - LVOT VTI 9.49 cm - LVOT peak gradient 1.08 mmHg - LVOT mean gradient 0.52 mmHg - BEST Vmax 0.37 m/sec - Name Value Normal Range MR Vmax 4 m/sec - MR VTI 125.3 cm - Name Value Normal Range TR Vmax 3.1 m/sec - TR peak gradient 38 mmHg - RAP 8 mmHg - RVSP 46 mmHg - IVC diameter 2.1 cm - Name Value Normal Range PV Vmax 0.35 m/sec - PV peak gradient 0.5 mmHg -
[2017-08-28] MEDS: Insulin LISPRO* 1 UNITS UNIT SUBCUT SCH ×2 (10:02→19:26)
--- NOTE | 2017-08-28 10:36 | RAD ---
HISTORY: Pulmonary embolism COMPARISONS: None relevant TECHNIQUE: Multiple transverse and longitudinal ultrasound images were obtained of the right lower extremity from the level of the common femoral vein inferiorly through to the infrapopliteal veins using grayscale, color Doppler, and spectral Doppler imaging with and without compression and with augmentation. Comparison images were obtained of the contralateral common femoral vein. FINDINGS: There is somewhat limited evaluation of the peroneal vein. VEINS: There is nonocclusive thrombus noted in the inferior extent of the right femoral vein. The venous system of the right lower extremity is compressible throughout its course, with normal flow on color Doppler imaging and normal response to augmentation on spectral Doppler imaging. SOFT TISSUES: Unremarkable. OTHER FINDINGS: None. IMPRESSION: NONOCCLUSIVE THROMBUS OF THE RIGHT FEMORAL VEIN
--- NOTE | 2017-08-28 11:41 | PN ---
Progress Note - Progress Note Date of Service: 08/28/17 Note: CRITICAL CARE MEDICINE Date: 08/28/17 Time: 1100 SUBJECTIVE: Patient seen and examined. pt explains acute sob yesterday at library; center chest discomfort but not really pain. felt better with oxygen. states he was felt unwell with a cold early dec that lingered for awhile. held up at home a lot, but not completely sedentary, just more then usual. no long travel. no falls. no brusing. no melana. ostomy care well. no bleeding issues. was started on heparin overnight, but held currently due to elevated ptt PHYSICAL EXAM: Vital Signs: Reviewed. SBP overnight ranging 80-100s, with sbp now ~90. HR 80s Neurologic: communicating well. nonfocal. HEENT: pupils equal. Sclera anicteric. Trachea midline. Cardiovascular: reg, S1 S2, 3/6 diana at [facility] Respiratory: off O2, sats stay about 93% but larger excursion and more rapid rate. clear otherwise Abdomen: Soft, nt. No r/g/r. Ostomy intact; large healed scar Extremities: Warm. no edema. Access: piv LABS: Reviewed. ptt 187 this am IMAGING: Reviewed. MEDICATIONS: Reviewed. ASSESSMENT: 76 M Submassive PE afib on admission non-occlusive thrombosis of right femoral vein h/o ca; s/p ostomy h/o viral myocarditis about 20 years ago PLAN: discussed his dx and px at length we discussed his current tx, his morbidity and mortality potentials. He understands he can continue current tx course, but given longer term potentials with his current cardiac ailments, with echo aslo showing strain, + bnp, +troponin, sbp <90 at times and feeling weak, that it would be prudent to move forward with 50mg dose tpa to foster cardiac improvement. We discussed potenital risks for minor and major bleeding and potential interventions if these should arise. He expresses good understanding and consents to receiving therapy. We did call his who is coming in and we will discuss with her prior to initiating therapy. Also, ptt was elevated and heparin gtt on hold for 3 hours prior to initiating tx and then can resume heparin post infusion at lower dose range without bolus. Supportive and preventative care as ordered. SUP: po VTE prophylaxis: as above Disposition: ICU Code Status: Full Critical Care Time: 44min Kathleen Dalton DO
[2017-08-28] MEDS ORDERED: ALTEPLASE IVPB ONE (13:00)
[2017-08-28] MEDS ORDERED: Alteplase* 50 MG in PREMIX* 100 ML IVPB ONE (13:00)
--- NOTE | 2017-08-28 14:10 | PN ---
Progress Note - Progress Note Date of Service: 08/28/17 Note: CRITICAL CARE MEDICINE Date: 08/28/17 Time: 1400 Pts arrived and updated and agrees with plan of care. TPA ordered and initiated. pt doing well. Will resume heparin gtt post tpa and consider initiation of xeralto starting tomorrow am. tpa and icu care. Disposition: ICU Code Status: Full Critical Care Time: 10min FAdriana Dalton DO
[2017-08-28] MEDS ORDERED: Heparin DRIP 25,000 UNITS(*) 25,000 UNITS/500 ML BAG IVPB SCH (15:00)
[2017-08-28] MEDS ORDERED: Heparin DRIP 25,000 UNITS(*) 25,000 UNITS/500 ML BAG IV SCH (15:00)
[2017-08-28] MEDS ORDERED: Protamine Sulfate* 50 MG in NS 0.9% 50 ML* 50 ML IV ONE (18:00)
[2017-08-28] MEDS ORDERED: Sodium Chloride 3% HYPERTONIC* 500 ML IVPB ONE (18:01)
[2017-08-28] MEDS ORDERED: Labetalol IV* 5 MG/ML 20 ML VIAL ONE ×2 (18:02)
--- NOTE | 2017-08-28 18:12 | RAD ---
INDICATION: Code arana. COMPARISON: There are no prior studies available for comparison. TECHNIQUE: Contiguous axial sections of the brain were obtained from the skull base to the vertex without contrast. FINDINGS: There is a large area of intraparenchymal hemorrhage present in the right temporal and parietal lobes measuring up to 10.2 x 5.2 cm in size. This causes compression of the adjacent sulci and compression of the right lateral ventricle and midline shift with approximately 1 cm of subfalcine herniation. No significant focal osseous abnormality is seen. The visualized portion of the paranasal sinuses and mastoid air cells appear clear. The results of this exam were discussed with the referring clinician at 1804 hours. IMPRESSION: LARGE INTRAPARENCHYMAL HEMATOMA IN THE RIGHT TEMPORAL AND PARIETAL LOBES CAUSING MASS EFFECT AND SUBFALCINE HERNIATION DESCRIBED.
[2017-08-28] MEDS ORDERED: Etomidate* 2 MG/ML 20 ML VIAL (40 MG) ONE (18:14)
[2017-08-28] MEDS ORDERED: niCARdipine 0.1MG/ML IVPREMIX* 20 MG/200 ML BAG ONE (18:18)
--- NOTE | 2017-08-28 18:37 | PN ---
Hospitalist Progress Note Date of Service: 08/28/17 CAT called. MD arrived and called froy sumit. At the time of assessment, Mr. Basurto had left-sided paresis, sensation was in tact, he was talking to us, and able to follow commands. We took him to CT scan, which showed a large temporal/parietal bleed. Upon arrival back to the ICU, his bp was 200/100. Labetalol 10mg IV was given. I discussed the findings on CT with neurosurgery. They will call back after reviewing the films. A nicardipine drip was ordered and started at 5/hr (goal systolic <140, diastolic >90). He became drowsy and minimally responsive. The decision was made to intubate, and an ED physician came and successfully intubated him. Breath sounds equal bilaterally. Mr. Basurto' arrived and I explained the findings of the CT scan. Case discussed with Dr. Dalton, who recommended protamine sulfate to reverse heparin and mannitol until neurosurgery arrives.
[2017-08-28] MEDS: levETIRAcetam IV* 500 MG in NS 0.9% 100 ML* 100 ML IVPB SCH (18:40)
[2017-08-28] MEDS ORDERED: Mannitol 25% (12.5 GM) 50 ML* 12.5 GM/50 ML VIAL IV ONE (18:45)
[2017-08-28] MEDS ORDERED: Mannitol 25% (12.5 GM) 50 ML* 12.5 GM/50 ML VIAL ONE (18:46)
--- NOTE | 2017-08-28 18:57 | RAD ---
INDICATION: 2 placement. COMPARISON: Comparison is made with a prior chest x-ray study from August 27, 2017. TECHNIQUE: A portable view of the chest was obtained. FINDINGS: The patient is status post intubation. The endotracheal tube is faintly visualized and projects over the midline. There is a nasogastric tube which extends into the left lung via the left mainstem bronchus. The tip projects just above the costophrenic angle. The heart is moderately enlarged and unchanged. The lungs are grossly clear. There is blunting of the left costophrenic angle suggestive of a small pleural effusion. The results of this exam were discussed with the referring clinician. IMPRESSION: 1. THE NASOGASTRIC TUBE TIP IS LOCATED IN THE LEFT LUNG. RECOMMEND REMOVING AND REPOSITIONING. 2. SMALL LEFT PLEURAL EFFUSION.
[2017-08-28] MEDS ORDERED: niCARdipine 0.1MG/ML IVPREMIX* 20 MG/200 ML BAG IV SCH (19:00)
--- NOTE | 2017-08-28 19:05 | PN ---
Progress Note - Progress Note Date of Service: 08/28/17 Note: CRITICAL CARE MEDICINE Date: 08/28/17 Time: 1830 Pt with acute left solitario and neglect with deviation and CT with large Right sided parietal and temporal lobe hemorrhage. Ordered protamine for what it is worth for the heparin, tpa 1/2 life mostly dissipated by now as this unfortunately is the main culprit; not much rationale at this point for plt nor factors. 3% saline to initiate. keppra prophylaxis. consider mannitol. Hospitalists with bedside care. Nsgy consulting. D/w pts via the phone. As pt, her and I had talked today about rationale for tx and potential complications, this is certainly the most catastrophic. As he is already comatose now and given his wishes of wanting to be the best self he can be (and hence our decisions today), and although he's a potential candidate for decompressive R crani, this would likely only allow him to live but not provide nowhere near the quality of life he desires. I advised his of this and nsgy is kind enough to discussion these potentials with pts as well, and I think his strong will support patient towards his goals. Unfortunate. Appreciate efforts. Kathleen Dalton, DO
[2017-08-28] MEDS ORDERED: Norepinephrine VIAL* 8 MG in NS 0.9% 500 ML* 492 ML IVPB SCH (20:00)
[2017-08-28] MEDS ORDERED: Norepinephrine 16MCG/ML IVPRE* 4,000 MCG/250 ML BAG IV SCH (20:00)
[2017-08-28] MEDS ORDERED: Morphine INJ* 10 MG/ML 1 ML CARPUJECT IV ONE (20:45)
[2017-08-28] MEDS ORDERED: Morphine PCA 5 MG/ML * Titrate per Protocol PCA SCH (21:00)
--- NOTE | 2017-08-28 22:32 | CONS ---
CONSULTATION NOTE: DATE OF CONSULT: 08/28/17 HISTORY OF PRESENT ILLNESS: The patient is a very pleasant 76-year-old gentleman who was admitted to the hospital for large PR. The patient has a history of colon cancer, atrial fibrillation, diabetes, neuropathy, cardiomyopathy, GERD, acute kidney injury. I was requested to see the patient by ICU team regarding CT scan findings suggestive of large right parietal, temporal intracranial hemorrhage. 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 At that time he developed significant chest pain. He was brought to the emergency room and he was diagnosed with PE, the patient was placed on heparin and received tPA. He started declining in his mental status and became unresponsive and the patient was taken for a CT scan which revealed a large right-sided intracranial hemorrhage with a midline shift. The patient was intubated. History was obtained from the patient's and the patient's chart. PAST MEDICAL HISTORY: Diabetes, neuropathy secondary to chemotherapy, atrial fibrillation, cardiomyopathy, GERD, kidney injury, nephrolithiasis, and colon cancer. PAST SURGICAL HISTORY: Colon resection, ileostomy, hernia repair, and nephrectomy. MEDICATIONS: The patient was on: 1. Gabapentin. 2. Fexofenadine. 3. Lipitor. 4. Aspirin. 5. Omeprazole. 6. Vitamin B12. 7. Metoprolol. 8. Magnesium. ALLERGIES: BEES ALLERGY, SULFA, DAIRY, ENVIRONMENTAL ALLERGY, and GREEN TOMATOES. FAMILY HISTORY: Mother from brain aneurysm. Father from [place]. SOCIAL HISTORY: Tobacco negative, he quit in the 80s. Alcohol 1 to 2 glasses per night. Recreational drug use negative. The patient is and lives at home with his . PHYSICAL EXAMINATION: The patient does not open his eyes to painful stimuli. His pupils are nonreactive, left 3 mm and right 2 mm. The patient does not follow commands. He will extend his upper extremities to pain. Does not withdraw to pain to both his lower extremities. Deep tendon reflexes +2 bilaterally. Clonus: Positive. Babinski positive bilaterally. Gardner's positive bilaterally. The patient does have significant spasticity in the lower extremities. He is on the ventilator. He has present corneal, gag and cough reflexes. DIAGNOSTIC STUDIES/LAB DATA: Studies: The patient had a CT scan of brain revealing a large acute and hyperacute intracranial hemorrhage on the right parietal, temporal and frontal lobes with significant midline shift and compression of the right ventricular system. ASSESSMENT: The patient is a very pleasant 76-year-old right-handed gentleman with a large right intracranial hemorrhage after receiving tPA and heparin for MRCP with a history of colon cancer, atrial fibrillation, and cardiomyopathy. PLAN: The patient at this point has signs of increased intracranial pressure. We discussed with the patient's in extent the patient's condition as well as prognosis including treatment options. We discussed with the patient's the option of surgical intervention in the form of hemicraniectomy and evacuation of the hematoma , possible EVD placement, with unfortunately guarded prognosis based on his comorbidities and the amount of hemorrhage as well as clinical condition. The patient's understood the options and according to the patient's wishes, she would like to pursue only comfort measures. She fully understands the possible outcome. At this point, we will be happy to follow family's wishes. Discussed plan with the ICU team. Thank you for allowing us to participate in the care of this patient. Please do not hesitate to contact our office if you have any further questions or concerns regarding the care of this patient. Oscar Austin MD [id number]/[facility] #: [id number] MTDDarline
--- NOTE | 2017-08-29 00:04 | PN ---
Progress Note - Progress Note Date of Service: 08/29/17 Note: A lengthy conversation was held with family after being apprised of the situation via Nael Felix MD hospitalist & Dania Austin MD neurosurgery. Without a reasonable chance of meaningful recovery, they were offered continued maximal therapy, DNR with/without medical escalation, & Comfort-only care with withdrawal of life-sustaining interventions. Questions were sought & answered to their satisfaction. They decided upon comfort-only with withdrawal of life- sustaining care. Nael Dalton MD art objects supervisor was notified and agreed with plan.
[2017-08-29] MEDS: Atropine 1% (ORAL/SL)* 15 ML BTL SL PRN ×2 (07:28→08:36)
[2017-08-29] MEDS ORDERED: Pantoprazole IV* 40 MG IV SCH (09:00)
[2017-08-29] MEDS: levETIRAcetam IV* 500 MG in NS 0.9% 100 ML* 100 ML IVPB SCH (10:45)
[2017-08-29] MEDS ORDERED: Morphine PCA ADULT* 5 MG/ML 30 ML PCA SCH ×2 (11:05→16:00)
--- NOTE | 2017-08-29 11:13 | PN ---
Progress Note - Progress Note Date of Service: 08/29/17 Note: CRITICAL CARE MEDICINE Date: 08/29/17 Time: 1000 SUBJECTIVE: Patient seen and examined. has gone home for a bit. PHYSICAL EXAM: Vital Signs: Reviewed. SBP 70s. HR 150s, afib. RR >25. o Neurologic: comatose HEENT: pupils unequal and nonreactive. \Trachea midline. Cardiovascular: tachy Respiratory: upper airway secretions. Abdomen: Soft, nt. Extremities: cool Access: piv LABS: Reviewed. IMAGING: Reviewed. MEDICATIONS: Reviewed. ASSESSMENT: 76 M Submassive PE s/p tpa with catastrophic IPH resulting with coma Acute resp failure sec to airway, now post extubation and comfort care afib on admission non-occlusive thrombosis of right femoral vein on admission h/o ca; s/p ostomy h/o viral myocarditis about 20 years ago PLAN: inc morphine for comfort this am will update when present, but very unfortunate situation. Looks like he'll likely pass today. Disposition: ICU - comfort Code Status: comfort Critical Care Time: 20min FAdriana Dalton DO
[2017-08-29] MEDS ORDERED: Morphine INJ* 10 MG/ML 1 ML CARPUJECT IV ONE (12:48)
--- NOTE | 2017-08-29 15:08 | DS ---
CRITICAL CARE MEDICINE DISCHARGE SUMMARY ADMISSION DATE: 08/27/2017 ICU ADMISSION DATE: 08/27/2017 ICU DISCHARGE DATE: 08/29/2017 PRIMARY CARE PROVIDER: Casey. REFERRING PHYSICIAN: Damon. DIAGNOSIS: 1. Submassive bilateral pulmonary embolism with cor pulmonale. 2. Right ventricular pressure overload. 3. Moderate to severe tricuspid regurgitation. 4. Moderate pulmonary hypertension. 5. Acute systolic dysfunction. 6. Right femoral vein non-occlusive deep venous thrombosis. 7. Atrial fibrilliation. 8. History of myocarditis. HOSPITAL COURSE: 76 year old male presenting after experiencing acute shortness of breath while at the library, found to have large bilateral pulmonary emboli with enlarged right atrium and ventricle on CT scan, with echocardiography confirmed moderate to severe tricuspid regurgitation and pulmonary hypertension with right ventricular pressure overload. Systolic dysfunction with ejection fraction 30-35% and regional wall motion abnormalities. He was initially started on heparin drip and tolerated overnight with supplemental oxygen. Low blood pressures into 70s even overnight but asymptomatic to these pressures and heart rate in 80s on beta blockade. Discussions regarding use of thrombolytics ensued. Heparin drip already held due to elevated PTT and would remain held for 2 half lifes and then TPA was initiated at half dose regimen given patients clot burden, deep venous thrombosis, right ventricular strain and burden and consistent with patients life wishes. Patient and his agreed with therapy. He tolerated initially and was able to start heparin drip without bolus after TPA infusion completed. However, soon after he developed acute left hemiparesis with neglect and eye deviation. CT with large Right sided parietal and temporal lobe hemorrhage. Protamine, 3% saline, and mannitol given. Unfortunately, catastrohic injury. Neurosurgical evaluation given and all agreed with family, patient would not want life sustaining measures given the degree of deficits and patient was terminally extubated for comfort care. Passed with at his bedside 4:20pm. DISPOSITION: . Kathleen Dalton DO
[2017-08-29 19:12] VITALS: BP 102/70
== END 2017-08-29 16:40 | disposition expired | DRG 208 ==
LOC: ED 20:13 → ICU 08-28 00:26
PROVIDERS: ADMIT Pediatrics; ATTEND Internal Medicine Critical Care Medicine
PROC: 5A1935Z Respiratory Ventilation, Less than 24 Consecutive Hours (ICD-10-PCS; principal; 2017-08-28)
PROC: 0BH17EZ Insertion of Endotracheal Airway into Trachea, Via Natural or Artificial Opening (ICD-10-PCS; 2017-08-28)
PROC: 3E03317 Introduction of Other Thrombolytic into Peripheral Vein, Percutaneous Approach (ICD-10-PCS; 2017-08-28)
PROC: 0BP1XDZ Removal of Intraluminal Device from Trachea, External Approach (ICD-10-PCS; 2017-08-29)
DX: I26.09 Other pulmonary embolism with acute cor pulmonale (principal); J96.01 Acute respiratory failure with hypoxia; G93.5 Compression of brain; R40.20 Unspecified coma; I62.9 Nontraumatic intracranial hemorrhage, unspecified; I48.91 Unspecified atrial fibrillation; I82.411 Acute embolism and thrombosis of right femoral vein; K21.9 Gastro-esophageal reflux disease without esophagitis; C18.9 Malignant neoplasm of colon, unspecified; R41.4 Neurologic neglect syndrome; I42.9 Cardiomyopathy, unspecified; G81.94 Hemiplegia, unspecified affecting left nondominant side; E11.40 Type 2 diabetes mellitus with diabetic neuropathy, unspecified; Z96.0 Presence of urogenital implants; M47.892 Other spondylosis, cervical region; H91.90 Unspecified hearing loss, unspecified ear; I10 Essential (primary) hypertension; Z51.5 Encounter for palliative care; Z66 Do not resuscitate; I27.20 Pulmonary hypertension, unspecified; I07.1 Rheumatic tricuspid insufficiency; Z88.2 Allergy status to sulfonamides; Z87.891 Personal history of nicotine dependence; Z91.018 Allergy to other foods; Z91.011 Allergy to milk products; Z93.2 Ileostomy status; Z87.442 Personal history of urinary calculi; Z90.5 Acquired absence of kidney; Z82.49 Family history of ischemic heart disease and other diseases of the circulatory system; Z82.0 Family history of epilepsy and other diseases of the nervous system; Z90.49 Acquired absence of other specified parts of digestive tract; Z92.21 Personal history of antineoplastic chemotherapy; Z92.3 Personal history of irradiation; H53.8 Other visual disturbances
CPT/HCPCS: 36415; 70450; 71045; 71275; 80048; 80053; 80061; 82550; 82553; 83036; 83605; 83690; 83735; 83880; 84300; 84443; 84484; 85025; 85379; 85610; 85730; 86140; 87641; 93005; 93306; 93970; 94002; 99285; A9270-GY; J1644; J2150; J2270; J2720; J2997; J3475; Q9967